=== PATIENT | female | born 2005 | race Hispanic/Latino ===

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

== ENCOUNTER 2023-01-23 13:51 | Outpatient (CLI) | payer BC ==
[2023-01-23 10:18] LABS: #Monocytes 0.2 10x3/uL (0.0-1.1); #Neutrophils 2.6 10x3/uL (1.5-8.4); %Basophils 0.5 % (0.0-2.0); %Eosinophils 0.5 % (0.0-6.0); %Lymphocytes 34.4 % (18.0-47.0); %Monocytes 4.8 % (0.0-10.0); %Neutrophils 59.6 % (40.0-75.0); Hematocrit 41.2 % (34.9-44.5); Hemoglobin 14.1 g/dL (12.0-15.5); Mean Corpuscular HGB CONC 34.2 g/dL (32.0-36.0); Mean Corpuscular Hemoglobin 30.7 pg (27.0-33.0); Mean Corpuscular Volume 89.8 fl (81.6-98.3); Mean Platelet Volume 11.2 fl (7.4-10.4); Platelet Count 184 10x3/uL (150-450); RBC Distribution Width 13.4 % (11.5-14.5); Red Blood Cell (RBC) Count 4.59 10x6/uL (3.90-5.03); White Blood Cell (WBC) Count 4.4 10x3/uL (3.5-10.5)
[2023-01-23 10:29] LABS: BHCG - Serum Negative (NEGATIVE); Pregs Control Background? CLEAR/WHITE (CLR/WHITE); Pregs Control Bar Appear? YES (CONTROL BAR)
[2023-01-23 10:33] LABS: Anion Gap 12 mmol/L (10-20); BUN (Urea Nitrogen) 6 mg/dL (7.0-18.7); Calc. Creatinine Clearance 0 mL/min (70-130); Calcium 9.7 mg/dL (7.8-10.44); Carbon Dioxide 22 mmol/L (22-29); Chloride 110 mmol/L (98-107); Estimated GFR 108; Glucose 125 mg/dL (70-105); Potassium 3.7 mmol/L (3.5-5.1); Sodium 140 mmol/L (136-145)
== END 2023-01-23 13:52 | disposition home or self-care (01) ==
LOC: LABBT 13:51
PROVIDERS: ATTEND Surgery
DX: Z01.812 Encounter for preprocedural laboratory examination (principal); N63.20 Unspecified lump in the left breast, unspecified quadrant
CPT/HCPCS: 80048; 84703; 85025

== ENCOUNTER 2023-01-28 09:04 | Day surgery (SDC) | payer BC ==
[2023-01-23 09:47] VITALS: BMI 21.1
[2023-01-28] MEDS ORDERED: Sodium Chloride 0.9% 100 ML ONE (10:29)
[2023-01-28] MEDS ORDERED: CEFAZOLIN 2 GM VIAL ONE (10:29)
[2023-01-28] MEDS ORDERED: EPINEPHrine 1 MG/ML VIAL ONE (10:48)
[2023-01-28] MEDS ORDERED: Bupivacaine 0.25% HCL 30 ML VIAL ONE (10:48)
[2023-01-28] MEDS ORDERED: PROPOFOL 20 ML ONE (10:55)
[2023-01-28] MEDS ORDERED: fentaNYL PF 100 MCG/2 ML SYRINGE ONE (10:55)
[2023-01-28] MEDS ORDERED: Ketorolac Tromethamine 30 MG/ML VIAL ONE ×2 (11:10→11:43)
[2023-01-28] MEDS ORDERED: PROPOFOL 200 MG/20 ML VIAL ONE (11:10)
[2023-01-28] MEDS ORDERED: Lidocaine 1% PF 5 ML VIAL ONE (11:10)
[2023-01-28] MEDS ORDERED: Dexamethasone 20 MG/5 ML VIAL ONE (11:10)
[2023-01-28] MEDS ORDERED: PHENYLEPHRINE-NS 100 MCG/ML 10 ML SYRINGE ONE ×2 (11:10→11:40)
[2023-01-28] MEDS ORDERED: Ondansetron PF 4 MG/2 ML Vial ONE ×2 (11:10→11:16)
[2023-01-28] MEDS ORDERED: Dexamethasone 4 mg/ml Vial ONE (11:43)
[2023-01-28] MEDS ORDERED: Meperidine HCl/PF 25 MG/ML VIAL ONE (12:01)
== END 2023-01-28 14:03 | disposition home or self-care (01) ==
LOC: SDC 09:04
PROVIDERS: ATTEND Surgery
PROC: 0HBU0ZZ Excision of Left Breast, Open Approach (ICD-10-PCS; principal; 2023-01-28)
DX: D24.2 Benign neoplasm of left breast (principal); N60.22 Fibroadenosis of left breast; F17.200 Nicotine dependence, unspecified, uncomplicated
CPT/HCPCS: 88307; J0171; J1100; J1885; J2175; J2405; J2704; J3490; S0020